=== PATIENT | female | born 1970 | race Two or more races ===

== ENCOUNTER 2018-06-30 09:27 | Emergency (ER) | payer OTHER ==
[2018-06-30 09:55] VITALS: BMI 22.7
--- NOTE | 2018-06-30 10:15 | PDOC ---
History of Present Illness - General Chief Complaint: Respiratory Stated Complaint: CHEST PAIN Time Seen by Provider: 06/30/18 10:13 - History of Present Illness Initial Comments: The pt is a 47F w/ a history of hyperthyroidism who presents for evaluation of 14 days of productive cough, generalized myalgias and malaise, subjective fevers /chills. She was seen three days ago in an Urgent Care, swabbed for the flu, and prescribed Tamiflu. She has also been taking Tylenol with some relief of her myalgias. She now reports one day of R thoracic wall pain that is worsened with coughing and at night. Denies pain that is worsening with exertion. She denies N/V/D, dysuria, hematuria, abdominal pain, or blood in her stool 06/30/18 10:33 Past History - Past Medical History Allergies/Adverse Reactions: Allergies Allergy/AdvReac Type Severity Reaction Status Date / Time No Known Allergies Allergy Unverified 06/30/18 09:53 Home Medications: Ambulatory Orders Benzonatate [Tessalon Pearls -] 100 mg PO TID #21 capsule 06/30/18 Methimazole [Tapazole -] 10 mg PO DAILY 06/30/18 COPD: No Thyroid Disease: Yes - Suicide/Smoking/Psychosocial Hx Smoking History: Never smoked Have you smoked in the past 12 months: No Hx Alcohol Use: No Drug/Substance Use Hx: No Review of Systems - Review of Systems Able to Perform ROS?: Yes Comments:: GENERAL/CONSTITUTIONAL: +fever or chills. No weakness HEAD, EYES, EARS, NOSE AND THROAT: No change in vision or hearing. +sore throat CARDIOVASCULAR: Denies orthopnea RESPIRATORY: +cough; Denies hemoptysis GASTROINTESTINAL: No nausea, vomiting, diarrhea or constipation GENITOURINARY: No dysuria, frequency, or change in urination SKIN: No rash NEUROLOGIC: No vertigo, loss of consciousness, or change in strength/sensation ENDOCRINE: No increased thirst. No abnormal weight change HEMATOLOGIC/LYMPHATIC: No anemia, easy bleeding, or history of blood clots ALLERGIC/IMMUNOLOGIC: No hives or skin allergy 06/30/18 10:15 *Physical Exam - Vital Signs Last Vital Signs Temp Pulse Resp BP Pulse Ox 98.9 F 100 H 20 111/69 99 06/30/18 09:53 06/30/18 09:53 06/30/18 09:53 06/30/18 09:53 06/30/18 09:53 - Physical Exam Comments: GENERAL: Awake, alert, and oriented to person/place/time, in no acute distress HEAD: No signs of trauma, normocephalic, atraumatic EYES: PERRLA, EOMI, sclera anicteric, conjunctiva clear ENT: Hearing grossly normal, nares patent, oropharynx clear without exudates. Moist mucosa LUNGS: No distress, speaks full sentences, clear to auscultation bilaterally; + productive cough in ED HEART: Regular rate and rhythm, normal S1 and S2, no murmurs appreciated, peripheral pulses normal and equal bilaterally ABDOMEN: Soft, nontender, normoactive bowel sounds. No guarding, no rebound EXTREMITIES: Normal inspection, Normal range of motion, no edema. No clubbing or cyanosis NEUROLOGICAL: Cranial nerves II through XII grossly intact. Normal speech, normal gait, no focal sensorimotor deficits SKIN: Warm, Dry 06/30/18 10:15 Moderate Sedation - Procedure Monitoring Vital Signs: Procedure Monitoring Vital Signs Temperature 98.9 F 06/30/18 09:53 Pulse Rate 100 H 06/30/18 09:53 Respiratory Rate 20 06/30/18 09:53 Blood Pressure 111/69 06/30/18 09:53 O2 Sat by Pulse Oximetry (%) 99 06/30/18 09:53 ED Treatment Course - LABORATORY CBC & Chemistry Diagram: 06/30/18 11:46 06/30/18 11:46 Medical Decision Making - Medical Decision Making The pt is a 47F who presents for evaluation of 14 days of viral syndrome CXR w/o evidence of PNX, PNA No leukocytosis No anemia 06/30/18 12:21 No SHERRELL Lytes wnl Trop I neg ECG w/o evidence of acute ischemia Pt w/ likely viral syndrome Will Rx tessalon pearls for symptomatic relief Plan for D/C w/ PCP f/u Discharge instructions and return precautions given Pt in agreement and verbalized understanding Dispo: home *DC/Admit/Observation/Transfer Diagnosis at time of Disposition: Viral syndrome Chest pain Qualifiers: Chest pain type: unspecified Qualified Code(s): R07.9 - Chest pain, unspecified - Discharge Dispostion Disposition: HOME Condition at time of disposition: Stable Decision to Admit order: No - Prescriptions Prescriptions: Benzonatate [Tessalon Pearls -] 100 mg PO TID #21 capsule - Referrals - Patient Instructions Printed Discharge Instructions: DI for Influenza -- Adult Additional Instructions: You were seen in the Emergency Department for evaluation of upper respiratory symptoms and chest pain. Your labs were unremarkable and your chest X-ray was negative for pneumonia. Review the handout provided at discharge. Follow up with your primary care provider. Return to the Emergency Department, if you develop fevers despite Tylenol, vomiting, diarrhea, blood in your stool or sputum, chest pain, trouble breathing, or any new/concerning symptoms. Print Language: [place] - Post Discharge Activity Forms/Work/School Notes: Back to Work
--- NOTE | 2018-06-30 11:05 | EKG ---
Test Reason : Blood Pressure : / mmHG Vent. Rate : 102 BPM Atrial Rate : 102 BPM P-R Int : 164 ms QRS Dur : 090 ms QT Int : 306 ms P-R-T Axes : 061 069 004 degrees QTc Int : 398 ms SINUS TACHYCARDIA NONSPECIFIC T WAVE ABNORMALITY ABNORMAL ECG Confirmed by PA MAGAÑA MD ([id number]) on 06/30/2018 11:05:12 AM Referred By: Confirmed By:PA MAGAÑA MD
[2018-06-30 11:53] LABS: BASO % 0.7 % (0-2.0); EOS % 0.4 % (0-4.5); HEMATOCRIT 34.1 % (32.4-45.2); HEMOGLOBIN 11.5 GM/dL (10.7-15.3); LYMPH % 16.9 % (8-40); MCH 30.5 pg (25.7-33.7); MCHC 33.8 g/dl (32.0-36.0); MEAN CELL VOLUME 90.2 fl (80-96); MEAN PLT VOLUME 8.3 fl (7.5-11.1); PLATELET COUNT 378 K/MM3 (134-434); RBC 3.78 M/mm3 (3.60-5.2); RDW 13.2 % (11.6-15.6)
[2018-06-30 12:40] LABS: ALBUMIN 3.2 g/dl (3.4-5.0); ALK PHOS 103 U/L (45-117); ANION GAP 7 MMOL/L (8-16); BILIRUBIN,TOTAL 0.3 mg/dL (0.2-1); BLOOD UREA NITROGEN 10 mg/dL (7-18); CALCIUM 8.8 mg/dL (8.5-10.1); CHLORIDE 106 mmol/L (98-107); CO2 24 mmol/L (21-32); CREATININE 0.5 mg/dL (0.55-1.3); GLUCOSE,RANDOM 84 mg/dL (74-106); POTASSIUM 3.9 mmol/L (3.5-5.1); SGOT/AST 45 U/L (15-37); SGPT/ALT 70 U/L (13-61); SODIUM 137 mmol/L (136-145); TOT PROT 7.4 g/dl (6.4-8.2)
[2018-06-30] MEDS ORDERED: ACETAMINOPHEN 325 MG TABLET (FP) PO ONE (13:29)
[2018-06-30] MEDS ORDERED: ACETAMINOPHEN 325 MG TABLET (FP) ONE (13:31)
--- NOTE | 2018-06-30 16:09 | PDOC ---
Attending Attestation - Resident Resident Name: Sahil Clark - ED Attending Attestation I have performed the following: I have examined & evaluated the patient, The case was reviewed & discussed with the resident, I agree w/resident's findings & plan, Exceptions are as noted - HPI HPI: 06/30/18 23:38 47yo F hx hyperthyroidism presents to the ED with CP for 2 days in the setting of 2 weeks of productive cough, generalized myalgias, malaise, and subjective fevers/chills. Pt recently was prescribed tamiflu at an urgent care visit a few days ago which she has been taking. She is unsure if her flu swab was +. Heart Score/ECG Review #1 06/30/18 23:41 EKG read and int by me: sinus tachycardia, rate 102, normal axis and intervals. No MARICEL or SD depressions.
[2018-06-30 16:15] VITALS: BP 116/78; PULSE 89; TEMP 99
== END 2018-06-30 16:15 | disposition home or self-care (01) ==
LOC: JER 09:27
DX: B34.9 Viral infection, unspecified (principal); R07.9 Chest pain, unspecified
CPT/HCPCS: 36415; 71046-TC-FY; 80053; 84484; 84703; 85025; 93005; 93010; 99282-25